=== PATIENT | male | born 1940 | race Two or more races ===

== ENCOUNTER 2021-01-24 08:34 | Outpatient (CLI) | payer OTHER | END 2021-01-24 08:42 | disposition home or self-care (01) | LOC: RX STUDY 08:34 | DX: R13.19 Other dysphagia (principal) ==

== ENCOUNTER 2021-08-12 12:38 | Outpatient (CLI) | payer OTHER | END 2021-08-12 12:39 | disposition home or self-care (01) | LOC: NUCLEAR 12:38 | PROVIDERS: ATTEND Internal Medicine | DX: G30.9 Alzheimer's disease, unspecified (principal) | CPT/HCPCS: 78803; A9557 ==